=== PATIENT | male | born 1940 | race Caucasian/White ===

== ENCOUNTER 2021-11-21 06:52 | Day surgery (SDC) | payer MEDICARE ==
[~2021-11-21] VITALS: Ht 177.8 cm; Wt 95.6 kg
[~2021-11-21 06:52] MED LIST: DIAZ5TAB PO; MECL-159 PO
[2021-11-21] MEDS ORDERED: normal saline 1000ml 1,000 ML IV PRN (07:10)
[2021-11-21] MEDS ORDERED: OMEP40CA21 PO (07:19)
[2021-11-21] MEDS ORDERED: DABI150C PO (07:22)
[2021-11-21] MEDS ORDERED: LOP25T PO (07:22)
[2021-11-21 07:38] LABS: BASOPHILS % (AUTO) 0.6 % (0-1); EOSINOPHILS # (AUTO) 0.1 X10'3 (0-0.9); EOSINOPHILS % (AUTO) 1.6 % (0-6); HEMATOCRIT 39.3 % (42.0-52.0); HEMOGLOBIN 12.9 g/dl (14.0-17.9); LYMPHOCYTES # (AUTO) 1.3 X10'3 (1.1-4.8); LYMPHOCYTES % (AUTO) 17.3 % (21-51); MEAN CORPUSCULAR HEMOGLOBIN 27.5 PG (27.0-31.0); MEAN CORPUSCULAR HGB CONC 32.9 g/dL (33.0-36.5); MEAN CORPUSCULAR VOLUME 83.6 FL (78-98); MEAN PLATELET VOLUME 8.2 FL (7.4-10.4); MONOCYTES # (AUTO) 0.5 X10'3 (0-0.9); NEUTROPHILS # (AUTO) 5.4 X10'3 (1.8-7.7); NEUTROPHILS % (AUTO) 73.5 % (42-75); PLATELET COUNT 262 X10'3 (140-440); RED CELL DISTRIBUTION WIDTH 13.5 % (11.5-14.5); WHITE BLOOD COUNT 7.4 X10'3 (4.5-11.0)
[2021-11-21] MEDS ORDERED: LIDOcaine 1% (10mg/ml)w/preservative inj. 20ml MDV ONE (08:46)
[2021-11-21] MEDS ORDERED: midazolam 1 mg/ML 2ml injection ONE (09:02)
[2021-11-21] MEDS ORDERED: fentaNYL/PF 50MCG/1 ML 2ML syringe ONE (09:02)
[2021-11-21] MEDS ORDERED: LORazepam 0.5 MG tablet PO PRN (09:05)
[2021-11-21] MEDS ORDERED: ondansetron/PF 4mg/2ml inj IV ONE (09:05)
[2021-11-21] MEDS ORDERED: cefTRIAXone 1g/NS 100ml IVPB 100 ML IV ONE (09:10)
--- NOTE | 2021-11-21 09:10 | NUR ---
Pt reports "slight" nausea and reports feeling "anxious". Educated patient on procedure and recovery. All questions answered. Contacted MD. New orders given per Annmarie Flood MD.
[2021-11-21 09:45] VITALS: BP 116/55
[2021-11-21 09:50] VITALS: BP 112/56
[2021-11-21 09:55] VITALS: BP 111/59
[2021-11-21 10:00] VITALS: BP 102/64
--- NOTE | 2021-11-21 10:20 | NUR ---
Procedure cancelled per MD.
--- NOTE | 2021-11-21 10:46 | NUR ---
IV DC'd, cannula intact. No s/s of bleeding or infection.
[2021-11-22] MEDS ORDERED: FLU VACC QS2021-22(6MOS UP)/PF 60 MCG/0.5 ML SYRINGE IM ONE (08:50)
== END 2021-11-21 10:55 | disposition home or self-care (01) ==
LOC: SSTAY O 06:52
PROVIDERS: ATTEND Radiology Diagnostic Radiology
DX: K91.89 Other postprocedural complications and disorders of digestive system (principal); Z53.8 Procedure and treatment not carried out for other reasons; Y83.8 Other surgical procedures as the cause of abnormal reaction of the patient, or of later complication, without mention of misadventure at the time of the procedure; Y92.89 Other specified places as the place of occurrence of the external cause
CPT/HCPCS: 36415; 74150; 85025; J0696; J2250; J2405; J3010; J3490; J7030

== ENCOUNTER 2023-10-03 10:36 | Day surgery (SDC) | payer MEDICARE ==
[2023-09-26 15:58] LABS: BILIRUBIN,URINE SMALL (Neg); CLARITY,URINE CLEAR (Clear); COLOR,URINE YELLOW (Yellow); GLUCOSE, URINE NEGATIVE (Neg); KETONES,URINE TRACE mg/dl (Neg); LEUKOCYTE ESTERASE ,URINE NEGATIVE (Neg); NITRITES, URINE NEGATIVE (Neg); OCCULT BLOOD,URINE NEGATIVE (Neg); PH,URINE 5.5 (4.8-8.0); PROTEIN,URINE TRACE mg/dl (Neg)
[2023-09-26 16:03] LABS: UA COLLECTION TYPE CLN CATCH MIDSTREAM
[2023-09-26 16:04] LABS: MUCUS STRANDS MANY /LPF (Neg); SQUAMOUS EPITHELIAL CELL,UR FEW /LPF (FEW)
[2023-09-26 16:05] LABS: BACTERIA,URINE FEW /HPF (Neg); RBC,URINE 0-2 /HPF (0-2); WBC,URINE 0-4 /HPF (0-4)
[2023-09-26 16:13] LABS: BASOPHILS % (AUTO) 0.4 % (0-1); EOSINOPHILS # (AUTO) 0.1 X10'3 (0-0.9); EOSINOPHILS % (AUTO) 1.3 % (0-6); LYMPHOCYTES # (AUTO) 0.9 X10'3 (1.1-4.8); LYMPHOCYTES % (AUTO) 20.1 % (21-51); MEAN CORPUSCULAR HEMOGLOBIN 29.6 PG (27.0-31.0); MEAN CORPUSCULAR HGB CONC 33.5 g/dL (33.0-36.5); MEAN CORPUSCULAR VOLUME 88.4 FL (78-98); MEAN PLATELET VOLUME 8.5 FL (7.4-10.4); MONOCYTES # (AUTO) 0.5 X10'3 (0-0.9); MONOCYTES % (AUTO) 10.4 % (2-12); NEUTROPHILS % (AUTO) 67.8 % (42-75); PRE OP HEMOGLOBIN 14.4 g/dL (14.0-17.9); PRE OP PLATELET COUNT 124 X10'3 (140-440); PRE OP WHITE BLOOD COUNT 4.5 10'3 (4.8-10.8); RED BLOOD COUNT 4.86 X10'6 (4.70-6.10); RED CELL DISTRIBUTION WIDTH 13.9 % (11.5-14.5)
[2023-09-26 16:43] LABS: ALBUMIN 3.5 G/DL (3.4-5.0); ALBUMIN/GLOBULIN RATIO 1.2 (1.1-1.5); ALKALINE PHOSPHATASE 67 IU/L (46-116); BLOOD UREA NITROGEN 15 MG/DL (7-18); BUN/CREATININE RATIO 15.6 (10.0-20.0); CALCIUM 8.6 MG/DL (8.5-10.1); CHLORIDE 105 MMOL/L (99-107); CREATININE 0.96 MG/DL (0.60-1.10); PRE OP ALT 24 U/L (30-65); PRE OP ANION GAP 8 (8-16); PRE OP AST 18 U/L (10-37); PRE OP BILIRUB, TOTAL 0.6 MG/DL (0.0-1.0); PRE OP GLUCOSE 100 MG/DL (70-104); PRE OP POTASSIUM 4.2 MMOL/L (3.4-5.1); PRE OP SODIUM 139 MMOL/L (135-145); TOTAL CARBON DIOXIDE 25.9 MMOL/L (24-32); TOTAL PROTEIN 6.5 G/DL (6.4-8.2); eGFR 75 ML/MIN
[2023-10-03] VITALS (9 sets, daily range): BP systolic 115–136; BP diastolic 64–75; PULSE 51–63; RESP 14–16; TEMP 98.4; O2SAT 95–100
[~2023-10-03] VITALS: Ht 175.3 cm; Wt 95.3 kg
[2023-10-03] MEDS: cefazolin 2gm/D5W 100mL 100 ML IV ONE (05:30)
[2023-10-03] MEDS: DOCUMENT DATE & TIME OF BETA-BLOCKER PO ONE (05:30)
[~2023-10-03 10:36] MED LIST changes: +APIX5TAB3 PO; -DIAZ5TAB PO; +LOP25T PO; -MECL-159 PO; +OMEP40CA21 PO; +ONDA4TAB12 PO; +TRAM50TA2 PO
[2023-10-03] MEDS: ringers solution, lacted 1,000 ML IV SCH (12:43)
[2023-10-03] MEDS: famotidine 20mg tablet PO ONE (12:43)
[2023-10-03] MEDS ORDERED: sevoflurane 250ml liquid IH ONE (13:52)
[2023-10-03] MEDS ORDERED: rocuronium 10mg/ml inj IV ONE (13:53)
[2023-10-03] MEDS ORDERED: midazolam 1 mg/ML 2ml injection ONE (13:53)
[2023-10-03] MEDS ORDERED: fentaNYL/PF 50MCG/1 ML 2ML syringe ONE (13:53)
[2023-10-03] MEDS ORDERED: propofol inj 20 ML IV ONE (13:53)
[2023-10-03] MEDS: BUPIVAcaine/PF 2.5mg/ml (0.25%) 10ml vial ONE (14:28)
[2023-10-03] MEDS ORDERED: morphine 4 MG/ML inj SYRINge IV PRN (15:00)
[2023-10-03] MEDS ORDERED: meperidine/PF 25mg/ml syringe IV PRN ×2 (15:00)
[2023-10-03] MEDS ORDERED: ringers solution, lacted 1,000 ML IV SCH (15:00)
[2023-10-03] MEDS ORDERED: proCHLORperazine 10 MG/2 ml inj IV PRN (15:00)
[2023-10-03] MEDS ORDERED: morphine 2 MG/ML inj. syringe IV PRN (15:00)
[2023-10-03] MEDS ORDERED: ondansetron/PF 4mg/2ml inj IV PRN (15:00)
[2023-10-03] MEDS ORDERED: dexamethasone sod phosphate 4mg/ml inj. ONE (15:15)
[2023-10-03] MEDS ORDERED: glycopyrrolate 0.2mg/ml inj ONE (15:23)
[2023-10-03] MEDS ORDERED: neostigmine methylsulfate 1 MG/ML 10ml vial ONE (15:23)
[2023-10-03] MEDS ORDERED: ondansetron/PF 4mg/2ml inj ONE (15:23)
[2023-10-03] MEDS ORDERED: acetaminophen 1,000mg/100ml IV 100 ML IV ONE (15:28)
[2023-10-03] MEDS: meperidine/PF 25mg/ml syringe IV PRN (16:27)
[2023-10-03] MEDS: HYDROcodone/acetaminophen 10/325mg tab PO ONE (16:30)
== END 2023-10-03 16:55 | disposition home or self-care (01) ==
LOC: PAS 10:36
PROVIDERS: ATTEND Surgery
DX: R93.3 Abnormal findings on diagnostic imaging of other parts of digestive tract (principal); I48.91 Unspecified atrial fibrillation; G47.30 Sleep apnea, unspecified; N40.0 Benign prostatic hyperplasia without lower urinary tract symptoms; K21.9 Gastro-esophageal reflux disease without esophagitis; Z79.899 Other long term (current) drug therapy; Z85.028 Personal history of other malignant neoplasm of stomach; Z90.49 Acquired absence of other specified parts of digestive tract; Z79.01 Long term (current) use of anticoagulants; Z87.891 Personal history of nicotine dependence; Z72.89 Other problems related to lifestyle; Z86.73 Personal history of transient ischemic attack (TIA), and cerebral infarction without residual deficits; Z86.14 Personal history of Methicillin resistant Staphylococcus aureus infection
CPT/HCPCS: 36415; 47000; 49999; 80053; 81001; 82948; 85025; 93005; J0131; J0690; J1100; J2175; J2250; J2405; J2704; J2710; J3010; J3490; J7030; J7120; Z7506; Z7508; Z7512; A4215; A4618; A7000

== ENCOUNTER 2025-06-09 10:31 | Day surgery (SDC) | payer MEDICARE ==
[2025-06-05 13:23] LABS: MEAN PLATELET VOLUME 8.0 FL (7.4-10.4); RED CELL DISTRIBUTION WIDTH 15.7 % (11.5-14.5)
[2025-06-05 13:35] LABS: APTT 27 SECONDS (22-32); INR 1.1 INR
[2025-06-05 13:38] LABS: CHOL/HDL RATIO 4.1 (0.00-4.99); CREATININE 0.99 MG/DL (0.60-1.10); LDL CHOLESTEROL 99 MG/DL (50-100); TOTAL CARBON DIOXIDE 30.0 MMOL/L (24-32); eGFR 72 ML/MIN
[~2025-06-09] VITALS: Ht 175.3 cm; Wt 91.0 kg
[2025-06-09] VITALS (10 sets, daily range): BP systolic 119–149; BP diastolic 67–86; PULSE 59–85; RESP 12–21; TEMP 98.1; O2SAT 95–97
[~2025-06-09 10:31] MED LIST changes: +CHOL50004 PO; +CYAN500T78 PO; -LOP25T PO; +ONDA-243 PO; -ONDA4TAB12 PO; +PUMP300C PO; +SUCR1ORA15 PO
--- NOTE | 2025-06-09 10:57 | ELECTROCARDIOGRAPH REPORT ---
[facility] Test Date: 2025-06-09 Test Time: 10:53:40 Pat Name: ELY NAVAS Department: [facility] Patient ID: [facility]-[id number] Room: Gender: M Php Software Engineer: DERIK : 1940 Requested By: DRAKE MIX Order Number: [id number] Reading MD: Dr. Trey Mix Measurements Intervals [place] Rate: 84 P: 62 DE: 169 QRS: 35 QRSD: 134 T: 40 QT: 401 QTc: 475 Interpretive Statements Sinus rhythm Multiple premature complexes, vent & supraven Right bundle branch block Electronically Signed On 06-10-2025 6:38:[address] Trey Mix Please click the below link to view image of tracing.
[2025-06-09] MEDS ORDERED: midazolam 1 mg/ML 2ml injection ONE ×2 (13:07→13:50)
[2025-06-09] MEDS ORDERED: fentaNYL/PF 50MCG/1 ML 2ML syringe ONE (13:07)
[2025-06-09] MEDS ORDERED: LIDOcaine 1% (10mg/ml) 2ml vial ONE (13:07)
[2025-06-09] MEDS ORDERED: heparin 1,000unit/ml 10ml vial 10 ML ONE (13:20)
[2025-06-09] MEDS ORDERED: verapamil 2.5 mg/ml inj IV ONE (13:20)
[2025-06-09] MEDS ORDERED: nitroGLYCERIN 500mcg/5mL D5W 5 ML IV ONE (13:21)
[2025-06-09] MEDS ORDERED: HYDROcodone/acetaminophen 10/325mg tab PO PRN (14:50)
[2025-06-09] MEDS ORDERED: ondansetron/PF 4mg/2ml inj IV PRN (14:50)
[2025-06-09] MEDS ORDERED: OXAZEpam 15mg capsule PO PRN (14:50)
[2025-06-09] MEDS ORDERED: HYDROcodone/acetaminophen 5mg/325mg tablet PO PRN (14:50)
[2025-06-10 06:02] LABS: ISTAT HGB MIX 12.6 g/dl (14.0-17.9); ISTAT Hct MIX 37 %PCV (42-52); ISTAT O2 SATURATION MIX VENOUS 63 % (60-80); ISTAT SOURCE VEN
--- NOTE | 2025-06-28 21:20 | CARDIOLOGY REPORT ---
DATE OF SERVICE: 06/09/2025 DICTATING PHYSICIAN: Trey Mccarty MD CARDIAC CATHETERIZATION REPORT DATE OF STUDY: 06/09/2025. PROCEDURES: * Access to the right radial artery. * Access to the right brachial vein. * Right heart catheterization. * Selective coronary angiography. * Conscious sedation monitoring time for 30 minutes. INDICATION: Aortic stenosis. PHYSICIAN: Trey Mccarty MD DESCRIPTION OF PROCEDURE: After informed consent was obtained, the patient was brought to the lab where he was prepped and draped in the usual sterile fashion. Using the Hanover-Erika catheter, the catheter was advanced under fluoroscopy guidance via the right brachial vein sheath into the outflow tract and into a pulmonary capillary wedge pressure where right pulmonary capillary wedge pressure and right-sided pressures were obtained. After removing the Hanover-Erika catheter, a TIG catheter was advanced over 0.035 wire into the ascending aorta. The wire removed and the catheter manipulated to engage the left and right coronary systems and selective coronary angiography performed. HEMODYNAMICS: For the patient's hemodynamics, please refer to the event log. The patient's pulmonary capillary wedge pressure was 7/6 with a mean of 2 mmHg. Pulmonary arterial pressure is 24/3 with a mean of 11 mmHg. Right ventricular pressure was 20/-3 with a mean of 1 mmHg. Right atrial pressure was 4/2 mmHg. AO saturation was 92%. PA saturation was 63%. Hemoglobin 13.6. Cardiac index 2.4 L/min; cardiac output 4.98 L/min. FINDINGS: The left main coronary artery is a medium caliber vessel with a 30-40% distal stenosis. The left anterior descending coronary artery is a medium caliber vessel with mild diffuse distal disease. The circumflex coronary artery is a medium caliber vessel with mild luminal irregularities. The right coronary artery is a normal caliber dominant vessel with 30% proximal stenosis. IMPRESSION: * 30-40% distal left main stenosis. 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 * Normal right-sided pressures. * The patient's mean pulmonary capillary wedge pressure was 2 mmHg and mean pulmonary arterial pressure was 11 mmHg. RECOMMENDATION: Transcatheter aortic valve replacement. Trey Mccarty MD TID: [id number] RECEIPT: [id number] CANDACE/SAHRA
== END 2025-06-09 17:00 | disposition home or self-care (01) ==
LOC: SSTAY O 10:31
PROVIDERS: ATTEND Student in an Organized Health Care Education/Training Program
DX: I35.0 Nonrheumatic aortic (valve) stenosis (principal); I25.10 Atherosclerotic heart disease of native coronary artery without angina pectoris; I45.10 Unspecified right bundle-branch block; I49.3 Ventricular premature depolarization; E78.00 Pure hypercholesterolemia, unspecified; I48.0 Paroxysmal atrial fibrillation; K21.9 Gastro-esophageal reflux disease without esophagitis; G47.33 Obstructive sleep apnea (adult) (pediatric); I48.91 Unspecified atrial fibrillation; I48.92 Unspecified atrial flutter; Z86.73 Personal history of transient ischemic attack (TIA), and cerebral infarction without residual deficits; Z79.01 Long term (current) use of anticoagulants; Z79.899 Other long term (current) drug therapy; Z98.890 Other specified postprocedural states
CPT/HCPCS: 36415; 80048; 80061; 82803; 83695; 85014; 85025; 85610; 85730; 93005; 93456; 99152; 99153; A6258; A6402; C1751; C1894; J1644; J2003; J2250; J3010; J3490; J7030; Q0163; Q9967; Z7610

== ENCOUNTER 2025-07-29 13:02 | Outpatient (CLI) | payer MEDICARE ==
[~2025-07-29 13:02] MED LIST changes: +IODIXANOL 320 MG/ML INFUS..BTL 100ML IV ONE
[2025-07-29 13:30] LABS: MEAN PLATELET VOLUME 8.3 FL (7.4-10.4); RED CELL DISTRIBUTION WIDTH 14.3 % (11.5-14.5)
[2025-07-29 13:40] LABS: APTT 28 SECONDS (22-32); INR 1.1 INR
--- NOTE | 2025-07-29 13:42 | RADIOLOGY REPORT ---
CLINICAL HISTORY: TAVR TECHNIQUE: Chest 2 views of the chest were obtained. COMPARISON: None FINDINGS: The heart size and pulmonary vasculature are normal. The lungs are clear. No pleural effusion is present. A right chest wall port-A-Cath line terminates at the cavoatrial junction. A cardiac device projects over the left medial lower thorax. IMPRESSION: NO ACUTE CARDIOPULMONARY PROCESS.
[2025-07-29 13:49] LABS: CREATININE 1.01 MG/DL (0.60-1.10); PRO BRAIN NATRIURETIC PEPTIDE 262 PG/ML (0-450); TOTAL CARBON DIOXIDE 29.3 MMOL/L (24-32); eGFR 70 ML/MIN
--- NOTE | 2025-07-29 20:23 | RADIOLOGY REPORT ---
EXAM: CT CTA TAVR CLINICAL HISTORY: AV STENOSIS. Atrial fibrillation. History of gastric cancer. Prior cholecystectomy. TECHNIQUE: Arterial phase spiral acquisitions obtained through the chest, abdomen, and pelvis. Multiplanar reconstructions were generated. Using automated software tools and 3-D reconstructions, imaging analysis of the aortic valve was performed. Dose reduction effected using automated exposure control and iterative reconstruction technique. 2-D and 3-D reformations are generated at a separate independent workstation. All CT scans at this facility are performed using dose modulation techniques as appropriate to a performed exam including the following: automated exposure control with adjustment of the mA and/or kV according to patient size. RADIATION DOSE: CTDI vol: 66 mGy DLP: 2437 mGy-cm Dose information generated by the CT scanner is available in PACS. IV Contrast: 125 cc visipaque 320 COMPARISON: None FINDINGS: Aortic valve annulus diameter: 28.6 x 23.7 mm. Aortic valve area: 5.19 cm2. Perimeter: 83.7 mm. Diameter through left coronary sinus: 34.2 mm. Diameter through right coronary sinus: 34.0 mm. Diameter through the noncoronary sinus: 31.3 mm. Diameter at the sinotubular junction: 25.2 mm. Distance from the right coronary sinus to right coronary orifice: 14.0 mm. Distance from left coronary sinus to left coronary orifice: 17.3 mm. Diameter of ascending aorta: 36.0 mm. Diameter of abdominal aorta: 12.8 mm. Diameter of the right common iliac artery: 8.25 mm. Diameter of the right external iliac artery: 6.44 mm. Diameter of the right common femoral artery: 6.08 mm. Diameter of left common iliac artery: 7.77 mm. Diameter of the left external iliac artery: 5.45 mm. Diameter of the left common femoral artery: 7.07 mm. Optimal coplanar projections: 3 cusp view- GEORGIAN 12, CAU 11 Anterior view -CACERES 0, CAU 24 No-ASSISTANT ACCOUNTING MANAGER-CAU view -GEORGIAN 21, CAU 0 Other findings: Chest: There is trace dependent atelectasis in bilateral lower lobes of the lungs. There is no bronchiectasis or honeycombing. There is no significant pulmonary nodule or mass. There is no pleural effusion. There is no pneumothorax. The heart is at the upper limits of normal for size. There is no pericardial effusion. There is a right chest port entering the internal jugular vein and the catheter terminates at the cavoatrial junction. There is no thoracic aortic aneurysm or dissection. The visualized thyroid gland is grossly unremarkable. No pathologic lymphadenopathy is identified in the chest by size criteria. There are coronary artery calcifications. There is an electronic device in the subcutaneous fat in the precordial region, likely a leadless pacer. There are old healed fractures of the right 7th and 8th ribs. Spleen: Unremarkable. Liver: There is a partially peripherally calcified 5.3 cm cyst in the right liver dome. The liver is within normal limits for size. The portal vein is patent. Gallbladder/bile ducts: The gallbladder is surgically absent.. Pancreas: Atrophic Adrenal glands: The left adrenal gland is within normal limits. There is a 2.3 cm fat density nodule within the right adrenal gland consistent with myelolipoma. Kidneys and ureters: The kidneys are similar in size and enhance symmetrically. No solid renal mass is identified. There is a 2.9 x 2.3 x 2.8 cm simple cystic structure (18 Hounsfield units) at the medial aspect of the superior pole of the right kidney that likely represents an exophytic cyst and no dedicated follow-up is recommended. There is no hydronephrosis of either kidney. Urinary bladder: The urinary bladder is decompressed and is not well evaluated on the current study. Reproductive structures: The prostate is enlarged. Peritoneum/gastrointestinal: There is extensive descending and sigmoid diverticulosis without evidence of diverticulitis. The colonic stool burden is small. The appendix is normal. There is no pathologic distention of the small bowel. There are small fat containing bilateral inguinal hernias. No free fluid is identified in the abdomen or pelvis. Bones: No acute fracture is identified. There is severe degenerative change in the lumbar spine. Soft tissues: Unremarkable. IMPRESSION: TAVR MEASUREMENTS ABOVE.
== END 2025-07-29 23:59 | disposition home or self-care (01) ==
LOC: RAD 13:02
PROVIDERS: ATTEND Internal Medicine Cardiovascular Disease
DX: K57.30 Diverticulosis of large intestine without perforation or abscess without bleeding (principal); K40.20 Bilateral inguinal hernia, without obstruction or gangrene, not specified as recurrent; I35.0 Nonrheumatic aortic (valve) stenosis; R06.02 Shortness of breath; I65.29 Occlusion and stenosis of unspecified carotid artery; K40.90 Unilateral inguinal hernia, without obstruction or gangrene, not specified as recurrent; J98.11 Atelectasis; I25.10 Atherosclerotic heart disease of native coronary artery without angina pectoris; K76.89 Other specified diseases of liver
CPT/HCPCS: 36415; 71046; 71275; 74174; 75572; 80053; 83880; 85025; 85610; 85730; Q9967